=== PATIENT | female | born 1960 | race Caucasian/White ===

== ENCOUNTER 2024-06-19 13:02 | Emergency (ER) | payer BC ==
[2024-06-19] MEDS ORDERED: Sodium Chloride 0.9% 10 ML Syringe FLUSH PRN (13:42)
[2024-06-19] MEDS: Ondansetron 4 MG/2 ML SDV IVPUSH ONE (13:45)
[2024-06-19] MEDS: HYDROmorphone 0.5 MG/0.5 ML Syringe IVPUSH PRN (13:45)
[2024-06-19] MEDS: HYDROmorphone 0.5 MG/0.5 ML Syringe IVPUSH ONE ×4 (14:30→17:59)
[2024-06-19 14:56] LABS: BASOPHILS PERCENT AUTO 0.1 % (0.2-1.2); EOSINOPHILS ABSOLUTE AUTO 0.1 x10^3/uL (0.0-0.5); EOSINOPHILS PERCENT AUTO 0.4 % (0.0-4.0); HEMATOCRIT 23.6 % (33.0-47.0); HEMOGLOBIN 7.9 g/dL (12.0-16.0); IMMATURE GRAN ABSOLUTE AUTO 0.21 x10^3/uL (0.00-0.07); LYMPHOCYTES ABSOLUTE AUTO 1.2 x10^3/uL (1.0-4.8); LYMPHOCYTES PERCENT AUTO 8.2 % (25.0-50.0); MEAN CORPUSCULAR HEMOGLOBIN 28.9 pg (26.0-32.0); MEAN CORPUSCULAR HGB CONC 33.5 g/dL (32.0-36.0); MEAN CORPUSCULAR VOLUME 86.4 fL (78.0-93.0); MONOCYTES ABSOLUTE AUTO 1.1 x10^3/uL (0.0-0.8); MONOCYTES PERCENT AUTO 7.6 % (2.0-11.0); NEUTROPHILS ABSOLUTE AUTO 12.3 x10^3/uL (1.8-7.7); NEUTROPHILS PERCENT AUTO 82.3 % (50.0-80.0); PLATELET COUNT,PLT 292 x10^3/uL (130-400); RED BLOOD CELL COUNT 2.73 x10^6/uL (4.00-5.50); WHITE BLOOD CELL COUNT,WBC 14.9 x10^3/uL (4.0-10.0)
[2024-06-19 15:14] LABS: A/G RATIO 0.45; ALANINE AMINOTRANSFERASE,ALT 16 U/L (14-59); ALBUMIN 1.9 g/dL (3.4-5.0); ALKALINE PHOSPHATASE 98 U/L (46-116); ASPARTATE AMNIOTRANSFERASE,AST 22 U/L (15-37); BILIRUBIN TOTAL 0.6 mg/dL (0.2-1.0); BLOOD UREA NITROGEN,BUN 9 mg/dL (7-18); CARBON DIOXIDE,CO2 31 mmol/L (21-32); CHLORIDE,CL 99 mmol/L (98-107); CREATININE 0.8 mg/dL (0.55-1.02); GLUCOSE RANDOM 142 mg/dL (70-99); POTASSIUM,K 3.5 mmol/L (3.5-5.1); PROTEIN TOTAL,TP 6.1 g/dL (6.4-8.2); SODIUM,NA 137 mmol/L (136-145)
[2024-06-19 15:17] LABS: ANION GAP 10.5 mmol/L (5-15); ESTIMATED GFR 83 mL/min (>=60)
== END 2024-06-19 18:01 | disposition swing bed (61) ==
LOC: VM.ED 13:02
DX: M54.9 Dorsalgia, unspecified (principal)
CPT/HCPCS: 36415; 71046; 80053; 85025; 85652; 86140; 96374; 96375; 96376; 99284; 99284-25; J1171; J2405

== ENCOUNTER 2024-06-19 17:49 | Inpatient (IN) | payer BC ==
[2024-06-19] MEDS ORDERED: Ondansetron 4 MG Tab.DIS PO PRN (18:40)
[2024-06-19] MEDS ORDERED: Naloxone 0.4 MG/ML SDV IVPUSH PRN (18:48)
[2024-06-19] MEDS ORDERED: FLUTICASONE PROPIONATE INH SCH (21:00)
[2024-06-19] MEDS ORDERED: [UNRECOGNIZED DRUG - OTHER] INH SCH (21:00)
[2024-06-19] MEDS: HYDROmorphone 1 MG/ML Syringe IVPUSH PRN (21:42)
[2024-06-19] MEDS: Fluticasone Propionate Nasal Spray 9.9 ML BOTTLE NAS ONE (22:33)
[2024-06-19] MEDS: oxyCODONE 5 MG Tab PO SCH (22:34)
[2024-06-19] MEDS: Methocarbamol 500 MG Tab PO SCH (22:36)
[2024-06-19] MEDS: Gabapentin 400 MG Cap PO SCH (22:36)
[2024-06-19] MEDS: Zolpidem 5 MG Tab PO SCH (22:36)
[2024-06-19] MEDS: Venlafaxine 37.5 MG Tab PO SCH (22:40)
[2024-06-20] MEDS: Lisinopril 20 MG Tab PO SCH (08:19)
[2024-06-20] MEDS: Multivitamin Tab PO SCH (08:19)
[2024-06-20] MEDS: metFORMIN 500 MG Tab PO SCH (08:19)
[2024-06-20] MEDS: amLODIPine 5 MG Tab PO SCH (08:20)
[2024-06-20 08:29] LABS: BASOPHILS PERCENT AUTO 0.1 % (0.2-1.2); EOSINOPHILS ABSOLUTE AUTO 0.1 x10^3/uL (0.0-0.5); EOSINOPHILS PERCENT AUTO 0.3 % (0.0-4.0); HEMATOCRIT 22.7 % (33.0-47.0); HEMOGLOBIN 7.7 g/dL (12.0-16.0); IMMATURE GRAN ABSOLUTE AUTO 0.11 x10^3/uL (0.00-0.07); LYMPHOCYTES ABSOLUTE AUTO 1.3 x10^3/uL (1.0-4.8); LYMPHOCYTES PERCENT AUTO 8.4 % (25.0-50.0); MEAN CORPUSCULAR HEMOGLOBIN 29.3 pg (26.0-32.0); MEAN CORPUSCULAR HGB CONC 33.9 g/dL (32.0-36.0); MEAN CORPUSCULAR VOLUME 86.3 fL (78.0-93.0); MONOCYTES ABSOLUTE AUTO 1.1 x10^3/uL (0.0-0.8); MONOCYTES PERCENT AUTO 7.2 % (2.0-11.0); NEUTROPHILS ABSOLUTE AUTO 13.1 x10^3/uL (1.8-7.7); NEUTROPHILS PERCENT AUTO 83.3 % (50.0-80.0); PLATELET COUNT,PLT 325 x10^3/uL (130-400); RED BLOOD CELL COUNT 2.63 x10^6/uL (4.00-5.50); WHITE BLOOD CELL COUNT,WBC 15.8 x10^3/uL (4.0-10.0)
[2024-06-20 08:50] LABS: A/G RATIO 0.43; ALBUMIN 1.8 g/dL (3.4-5.0); ANION GAP 12.5 mmol/L (5-15); BILIRUBIN TOTAL 0.7 mg/dL (0.2-1.0); CALCIUM 8.7 mg/dL (8.5-10.1); CREATININE 0.7 mg/dL (0.55-1.02); EST CRCL DRUG DOSING (CG) 74.98 mL/min; POTASSIUM,K 3.5 mmol/L (3.5-5.1)
[2024-06-20] MEDS ORDERED: Ezetimibe 10 MG Tab PO SCH (09:00)
[2024-06-20] MEDS ORDERED: FEXOFENADINE HCL 180 MG PO SCH (09:00)
[2024-06-20] MEDS ORDERED: Iopamidol 755 Mg/ML 100 ML Bottle IVPUSH ONE (11:04)
[2024-06-20] MEDS: Aspirin 81 MG Tab.Chew PO ONE (14:08)
== END 2024-06-20 14:25 | disposition short-term general hospital (02) | DRG 861 ==
LOC: VM.MS 18:01
PROVIDERS: ADMIT Nurse Practitioner Family; ATTEND Internal Medicine
DX: R53.83 Other fatigue (principal); K50.00 Crohn's disease of small intestine without complications; I66.01 Occlusion and stenosis of right middle cerebral artery; H26.9 Unspecified cataract; I10 Essential (primary) hypertension; G43.909 Migraine, unspecified, not intractable, without status migrainosus; M19.90 Unspecified osteoarthritis, unspecified site; Z96.641 Presence of right artificial hip joint; F32.9 Major depressive disorder, single episode, unspecified; E11.9 Type 2 diabetes mellitus without complications; E78.5 Hyperlipidemia, unspecified; G47.00 Insomnia, unspecified; M96.0 Pseudarthrosis after fusion or arthrodesis; M48.07 Spinal stenosis, lumbosacral region; F11.90 Opioid use, unspecified, uncomplicated; G89.4 Chronic pain syndrome; M48.9 Spondylopathy, unspecified; I65.21 Occlusion and stenosis of right carotid artery; I65.22 Occlusion and stenosis of left carotid artery; R29.810 Facial weakness; R47.81 Slurred speech; Z90.710 Acquired absence of both cervix and uterus; Z98.1 Arthrodesis status; Z98.890 Other specified postprocedural states; Z87.891 Personal history of nicotine dependence; Z98.41 Cataract extraction status, right eye; Z79.84 Long term (current) use of oral hypoglycemic drugs; Z79.1 Long term (current) use of non-steroidal anti-inflammatories (NSAID); Z79.899 Other long term (current) drug therapy
CPT/HCPCS: 36415; 70450; 70496; 80053; 85025; 99306; 99315; A9270-GY; J1171